=== PATIENT | male | born 1980 | race Caucasian/White ===

== ENCOUNTER 2018-02-10 22:22 | Emergency (ER) | payer BC, OTHER ==
[~2018-02-10] VITALS: Ht 170.2 cm; Wt 74.8 kg
[~2018-02-10 22:22] MED LIST: ALBUTEROL INHAL17 GM IH; AVELOX400 MG PO; BACTRIM DS TAB1 EACH PO; CARISOPRODOL 3350 MG; FLUOCINONI0.05 %/30; IBUPROFEN 600600 M1 PO; NORCO 5-325 TA1 EACH PO; VALIUM2 MG PO
[2018-02-10 22:32] VITALS: BP 164/107
[2018-02-10] MEDS ORDERED: CLEOCIN HCL300 MG PO (22:54)
== END 2018-02-10 23:09 | disposition home or self-care (01) ==
LOC: M.ERS 22:22
DX: L03.211 Cellulitis of face (principal); M54.30 Sciatica, unspecified side; F17.210 Nicotine dependence, cigarettes, uncomplicated

== ENCOUNTER 2020-05-10 13:16 | Emergency (ER) | payer BC ==
[~2020-05-10] VITALS: Ht 170.2 cm; Wt 79.4 kg
[~2020-05-10 13:16] MED LIST changes: +CLEOCIN HCL300 MG PO
[2020-05-10] MEDS ORDERED: HYDROCODON-ACE1 EAC7 PO (14:40)
[2020-05-10] MEDS ORDERED: FLEXERIL PO (14:40)
[2020-05-10 15:00] VITALS: BP 139/78
--- NOTE | 2020-05-10 16:39 | EKG ---
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 : 1980 Requested By: Marin Miramontes Order Number: [id number] MD: Charles Aceves Measurements Intervals [place] Rate: 90 P: 44 DC: 157 QRS: -34 QRSD: 93 T: 25 QT: 378 QTc: 463 Interpretive Statements Sinus rhythm Left axis deviation Baseline wander in lead(s) V2,V3,V5,V6 Compared to ECG 02/24/2010 21:23:44 Left-axis deviation now present Sinus tachycardia no longer present Electronically Signed On 05-10-2020 16:39:44 DRILLING SUPERINTENDENT by Charles Aceves [email or web address] <ELECTRONICALLY SIGNED> By: Charles Aceves MD, FAC 05/10/20 1639 1414 1414 Charles Aceves MD, FAC /EPI
== END 2020-05-10 15:05 | disposition home or self-care (01) ==
LOC: M.ERS 13:16
DX: M25.511 Pain in right shoulder (principal); R20.2 Paresthesia of skin; M54.2 Cervicalgia; R53.1 Weakness; X58.XXXA Exposure to other specified factors, initial encounter; Y93.89 Activity, other specified; Y92.89 Other specified places as the place of occurrence of the external cause; Y99.8 Other external cause status

== ENCOUNTER → 2020-05-30 | Outpatient (CLI) | payer BC ==
[~2020-05-30] MED LIST changes: +FLEXERIL PO; +HYDROCODON-ACE1 EAC7 PO
== END ==
LOC: M.MRI 15:57
PROVIDERS: ATTEND Student in an Organized Health Care Education/Training Program
DX: M50.11 Cervical disc disorder with radiculopathy, high cervical region (principal); M50.01 Cervical disc disorder with myelopathy, high cervical region; M48.02 Spinal stenosis, cervical region; M25.78 Osteophyte, vertebrae; M47.22 Other spondylosis with radiculopathy, cervical region; M75.101 Unspecified rotator cuff tear or rupture of right shoulder, not specified as traumatic

== ENCOUNTER 2020-09-25 20:28 | Inpatient (IN) | payer BC ==
[~2020-09-25] VITALS: Ht 172.7 cm; Wt 78.7 kg
[2020-09-25 20:39] VITALS: BP 128/93
[2020-09-25 20:46] LABS: ABSOLUTE BASOPHILS 0.1 thou/uL (0.0-0.2); ABSOLUTE EOSINOPHILS 0.2 thou/uL (0.0-0.7); ABSOLUTE LYMPHOCYTES 3.6 thou/uL (0.8-5.3); ABSOLUTE MONOCYTES 1.2 thou/uL (0.0-1.2); ABSOLUTE NEUTROPHILS 8.8 thou/uL (1.6-8.1); BASOPHILS 0.6 %; EOSINOPHILS 1.1 %; HEMATOCRIT 45.4 % (42.0-52.0); HEMOGLOBIN 15.7 gm/dL (14.0-18.0); LYMPHOCYTES 25.7 %; MCH 37.6 pg (26.0-34.0); MCHC 34.5 g/dL (28.0-37.0); MCV 108.9 fL (80.0-100.0); MPV 7.6 fl. (7.2-11.1); NUCLEATED RBCS 0 /100WBC; PLATELET COUNT* 336 thou/uL (150-400); POLYS 63.6 %; RBC 4.17 mil/uL (4.50-6.00); RDW-CV 15.1 % (10.5-14.5); WBC 13.8 thou/uL (4.0-11.0)
[2020-09-25 20:57] LABS: INR 1.1; PROTIME 11.2 Seconds (9.20-11.50)
[2020-09-25 21:00] VITALS: BP 139/92
[2020-09-25 21:26] LABS: CALCIUM 8.1 mg/dL (8.5-10.1); CREATININE 1.4 mg/dL (0.6-1.3); POTASSIUM 3.2 mmol/L (3.5-5.1)
[2020-09-25 21:36] LABS: ALBUMIN 3.9 g/dL (3.4-5.0); MAGNESIUM 1.8 mg/dL (1.8-2.4); TOTAL BILIRUBIN 0.6 mg/dL (<0.1-1.0); TOTAL PROTEIN 7.5 g/dL (6.4-8.2)
--- NOTE | 2020-09-25 21:43 | NUR ---
SEE STEMI FLOW SHEET
[2020-09-25 23:31] VITALS: BP 113/71
[2020-09-25 23:45] VITALS: BP 125/91
[2020-09-26] VITALS (34 sets, daily range): BP systolic 111–157; BP diastolic 70–110
--- NOTE | 2020-09-26 01:32 | NUR ---
PT TRANSPORTED ON ICU BED FROM KNIFE SETTER TO ICU ROOM 5 @ 2207 09/25/20. RECIEVED REPORT BEDSIDE BY KNIFE SETTER RN SHMUEL. PT WAS TRANSPORTED WITH ANGIOMAX INFUSING WITH ANOTHER BAG WITH PATIENT AND 1L NORMAL SALINE INFUSING AT 100ML/HR. KNIFE SETTER RN INSTRUCTIONS OF DR. PULIDO'S ORDERS ARE TO CONTINUE INFUSING ANGIOMAX GTTS UNTIL 1230AM AND INFUSE SODIUM CHOLORIDE FOR 8 HOURS. AGNIOMAX STOPPED AT 0030AM. RIGHT GROIN SITE WAS CHECKED WITH KNIFE SETTER RN PRESENT. DRESSING CLEAN/DRY/INTACT WITH SOME DRIED BLOOD. PULESE AND CAP REFILL GOOD WITH ALL EXTREMITY. BEDREST FOR 6 HOURS UNTIL 0345AM. ADMISSION MATERIAL STARTED AND FINISHED. PT SIGNED CONSENTS. GIRLFRIEND AT BEDSIDE TO VISIT PT. PT IS HEMODYNAMICLY STABLE. ORDERS INPUTED IN THE COMPUTER AND PRN MEDICATIONS VERIFIED FOR SYMPTOM RELIEF NEEDED. CONTINUE WITH PLAN OF CARE.
[2020-09-26 03:10] LABS: ABSOLUTE EOSINOPHILS 0.1 thou/uL (0.0-0.7); ABSOLUTE LYMPHOCYTES 1.6 thou/uL (0.8-5.3); ABSOLUTE MONOCYTES 1.2 thou/uL (0.0-1.2); BASOPHILS 0.4 %; EOSINOPHILS 0.6 %; HEMATOCRIT 40.9 % (42.0-52.0); HEMOGLOBIN 14.2 gm/dL (14.0-18.0); LYMPHOCYTES 15.7 %; MCH 37.1 pg (26.0-34.0); MCHC 34.8 g/dL (28.0-37.0); MCV 106.8 fL (80.0-100.0); MPV 7.9 fl. (7.2-11.1); NUCLEATED RBCS 0 /100WBC; PLATELET COUNT* 283 thou/uL (150-400); POLYS 71.3 %; RBC 3.83 mil/uL (4.50-6.00); RDW-CV 14.5 % (10.5-14.5); WBC 9.9 thou/uL (4.0-11.0)
[2020-09-26 03:42] LABS: CALCIUM 8.1 mg/dL (8.5-10.1); CREATININE 1.1 mg/dL (0.6-1.3)
--- NOTE | 2020-09-26 10:06 | CARD ---
[address] [address] CARDIAC CATH REPORT Name: ALY LEUNG Room: [address] ADM IN M.R.#: [id number] Admission: 09/25/20 Attend Phys: Don Keane Discharge: Date of : 78 Report #: [id number] THIS REPORT FOR: cc: Mainor Martínez Gregg R. DO Park, Jin S. MD ~ APPROVED REPORT Study performed: 09/25/2020 20:49:43 Patient Details Patient Status: ED Room #: The patient is a 40 year-old male Event Personnel Tony Bob Document Restorer, Marylou Mustafa RN Ophthalmic Medical Technician, Tonya Daniel RN Monitor, Reji Thompson RTR Scrub Procedures Performed Art Access - R femoral artery* Left Heart Cath w/or w/o Coronaries LHC CLAY Revasc AMI Total/Sub Single RCA Hemostasis w/ Angioseal Throbectomy RCA Indication STEMI (>0 to less than or equal to 6 hours), Dyspnea, Chest pain Risk Factors Hypercholesterolemia, Tobacco History (2ppd) Procedure Narrative The patient was brought electivelyemergently to the Cardiac Catheterization Laboratory and was prepped and draped in a sterile manner. The right femoral was infiltrated with 2% Lidocaine subcutaneous anesthesia. IV conscious sedation was used throughout procedure with appropriate monitoring and was performed in the presence of a registered nurse who was an independent trained observer other than the physician performing the procedure. A [place] 6 FR sheath was inserted into the right femoral artery. Coronary angiography was performed using coronary diagnostic catheters. The right coronary system was accessed and visualized with a 6Fr JR4 Guide Catheter catheter. The left coronary system was accessed and visualized with a 6Fr Diagnostic JL4 catheter. The left ventricle was accessed and visualized with [place] [address] CARDIAC CATH REPORT Name: ALY LEUNG Room: [address] IN ..#: [id number] Admission: 09/25/20 Attend Phys: Don Keane Discharge: Date of : 78 Report #: [id number] ventriculogram was performed in PERUVIAN projection. Closure device was deployed with a 6 Fr Angioseal. The patient tolerated the procedure well and there were no complications associated with the procedure. There was no hematoma. Intraoperative Conscious Sedation Sedation start time: 2111 Case end Time: 2153 Fentanyl 50.0 mcg Versed 1 mg Fluoro Time: 10.7 minutes Dose: DAP 81373 cGycm2 1336 mGy Contrast Type and Amount: Visipaque 180 ml Coronary Angiography The patient's coronary anatomy is right dominant. Diagnostic Cath Left Main The left main artery is a large-caliber vessel, patent with no flow-limiting lesions. LAD The LAD is a moderate-sized caliber vessel, traverses the anterior wall and terminates at the apex. There is mild diffuse plaque in the proximal segment, less than 20%. Diagonal 1 This is a moderate-sized caliber vessel, patent with no flow-limiting lesions. Circumflex Left circumflex artery is patent, with no flow-limiting lesions. OM1 This is a small to moderate-sized caliber vessel, patent with no flow-limiting lesions. OM2 This is a small to moderate-sized caliber vessel, patent with no flow-limiting lesions. Right Coronary The RCA is a dominant vessel with a subtotal occlusion in the mid segment with filling defects. Left Ventriculography The left ventricle is normal in size with Diminished contractility. The left ventricular ejection fraction is estimated to be 40-45%. Left ventricular wall motion abnormalities are present. There is hypokinesis of the inferior wall. Hemodynamics The aortic pressure is 158/67 mmHg with a mean of 107 mmHg. The left ventricular pressure is 123/9 mmHg with a mean of mmHg. The left ventricular end diastolic pressure is 28 mmHg. There was no gradient across the [place] [address] CARDIAC CATH REPORT Name: ALY LEUNG Room: [address] ADM IN M.R.#: [id number] Admission: 09/25/20 Attend Phys: oDn Keane Discharge: Date of : 78 Report #: [id number] PCI Technique Lesion Patient was preloaded with Brillinta. Percutaneous coronary intervention was performed on the mid right coronary artery. The lesion stenosis prior to intervention was 100% with ATIYA 1 flow. A 6F JR 4.0 Guide Catheter was used to engage the ostium. A IG: Luge Wire 180 Interventional Guidewire was used to cross the lesion. BALLOON DILATION A Balloon catheter Trek RX 2.25 X 15 was inserted and inflated up to 8.00atm for 7seconds. Additional Inflation: 8.00atm for 6seconds. The lesion was initially dilated with a 2.25 mm semicompliant balloon. There was still a significant residual stenosis with filling defect consistent with thrombus. A Pronto Extraction catheter was inserted and throbectomy performed x 2 passes. After the Pronto extraction catheter was used, there was filling of the distal vessels but still significant residual stenosis at the lesion site. During the procedure, the patient developed bradycardia, requiring treatment with atropine. The next step was placement of a drug-eluting stent at the lesion site. STENT DEPLOYMENT A drug-eluting stent [place] RX Stent [id number] was inserted and inflated up to 20.00atm for 16seconds. Additional Inflation: 18.00atm for 13seconds. POST STENT DEPLOYMENT BALLOON DILATION A Balloon catheter NC Trek RX 3.25 X 12 was inserted and inflated up to 18.00atm for 9seconds. Final angiography reveals 5 % stenosis with ATIYA 3 flow. Conclusion 1. Successful PCI involving Pronto extraction thrombectomy catheter and placement of a drug-eluting stent into the subtotal occlusion in the mid RCA with mu-ism of ATIYA-3 blood flow. 2. There is mild disease in the proximal AD. 3. There is mild to moderate segmental LV dysfunction. 4. Recommend dual antiplatelet therapy and aggressive risk factor management. <ELECTRONICALLY SIGNED> By: Tony Bob MD 09/26/20 1006 1006Tony Bob MD /INF
--- NOTE | 2020-09-26 10:33 | H ---
[place] [address] HISTORY AND PHYSICAL Name: ALY LEUNG Room: [address] ADM IN M.R.#: [id number] Admission: 09/25/20 Attend Phys: Don Keane Discharge: Date of : 78 Report #: [id number] THIS REPORT FOR: cc: Mainor Martínez Gregg R. DO Park, Jin S. MD ~ ADMIT DATE: 09/25/2020 CHIEF COMPLAINT: Chest pain. HISTORY OF PRESENT ILLNESS: This is a 40-year-old with a past medical history of tobacco use, presenting with acute onset of substernal chest pain. He was trying to sleep, when he woke up with substernal chest pain, with numbness down both arms. He developed diaphoresis and mild dyspnea. There is no history of fever, nausea or diarrhea. 911 was called. EKG from the EMS reveals sinus rhythm with ST elevation in inferolateral leads. PAST MEDICAL HISTORY: Denies diabetes, denies hypertension. ALLERGIES: None. MEDICATIONS: None. SOCIAL HISTORY: Two pack per day tobacco use, smoker. FAMILY HISTORY: Negative for premature CAD. REVIEW OF SYSTEMS: See HPI. PHYSICAL EXAMINATION: VITAL SIGNS: Blood pressure is 140/70, heart rate is 60 beats per minute. GENERAL APPEARANCE: He is a well-developed, well-nourished male in mild distress. HEENT: Normocephalic, atraumatic. Oral mucosa moist. NECK: Supple. LUNGS: Clear to auscultation. CARDIAC: Regular rate and rhythm, S1, S2 positive. ABDOMEN: Soft, nontender. EXTREMITIES: No cyanosis, no edema. LABORATORY DATA: EKG reveals sinus rhythm with ST elevation of 2-3 mm in leads II, III, aVF, V5, V6 with ST depression in V2. ASSESSMENT AND PLAN: 1. Acute inferolateral myocardial infarction. He was treated with aspirin, Brilinta, and heparin. He will be taken emergently to the [place] [address] HISTORY AND PHYSICAL Name: ALY LEUNG Room: [address] IN [facility]#: [id number] Admission: 09/25/20 Attend Phys: Don Keane Discharge: Date of : 78 Report #: [id number] 2. Tobacco use, complete smoking cessation is advised. 3. Hypercholesterolemia, will initiate statin therapy. <ELECTRONICALLY SIGNED> By: Tony Bob MD 09/26/20 1033 06 Gato Bob MD /nt
[2020-09-26 12:38] LABS: CHOLESTEROL 192 mg/dL (<200); HDL CHOLESTEROL 25 mg/dL (>40); LDL CHOLESTEROL > 400 mg/dL (<100); SERUM ASSESSMENT Clear; TC:HDL 7.7 Ratio (Not establshd); TRIGLYCERIDE 688 mg/dL (<150); VLDL 138 mg/dL (<40)
--- NOTE | 2020-09-26 14:17 | NUR ---
Met with patient and SO (Kaylie/[phone]) at bedside. Introduced role of CM. Patient admitted for Stemi. Patient currently lives in a wheelchair accessible house although he does not need assistance. Patient lives with SO and dtr. Patient was independent with ADLs and was working and driving prior to admission. No hx of DME, O2, dialysis, infusion therapy, BHS, rehab/SNF or HH. Patient was seeing Dr. Mainor Martínez for primary care needs but has not seen this doctor in over 10 years. CM to provide PCP resource list. Goal is for patient to return home at discharge. No anticipated needs noted at this time. Patient could downgrade to tele today of hospitalist agrees. CM to continue to follow
--- NOTE | 2020-09-26 16:26 | EKG ---
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 [employer]: : 1980 Requested By: Rose Woods Order Number: [id number] MD: Miguel Valentin Measurements Intervals [place] Rate: 58 P: 64 [place]: 156 QRS: 73 QRSD: 108 T: 93 QT: 458 QTc: 450 Interpretive Statements Sinus rhythm Inferoposterior infarct, acute (RCA) Lateral infarct, acute Probable RV involvement, suggest recording right precordial leads Compared to ECG 05/10/2020 14:14:15 Myocardial infarct finding now present Left-axis deviation no longer present Electronically Signed On 09-26-2020 16:26:26 CDT by Miguel Valentin [email or web address] <ELECTRONICALLY SIGNED> By: Miguel Valentin MD, [facility] 09/26/20 1626 31 31 Miguel Valentin MD, [facility] /EPI
--- NOTE | 2020-09-26 16:40 | EKG ---
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: : 1980 Requested By: Emilia Cho Order Number: [id number] Reading MD: Miguel Valentin Measurements Intervals [place] Rate: 70 P: 60 GA: 134 QRS: -26 QRSD: 99 T: 41 QT: 412 QTc: 445 Interpretive Statements Sinus rhythm Inferior infarct, recent Lateral leads are also involved Compared to ECG 09/25/2020 20:32:13 There has been evolution of the inferior posterior wall myocardial infarction Electronically Signed On 09-26-2020 16:39:50 CDT by Miguel Valentin [email or web address] <ELECTRONICALLY SIGNED> By: Miguel Valentin MD, [facility] 09/26/20 1639 1328 1328 Miguel Valentin MD, [facility] /EPI
--- NOTE | 2020-09-26 18:18 | NUR ---
181 - PT RECIEVED BED ASSIGNMENT ON TELEMETRY UNIT, ATTEMPTED TO CALL REPORT AND RN STATING UNABLE TO RECIEVE REPORT AT THIS TIME AND WILL CALL BACK.
--- NOTE | 2020-09-26 19:05 | NUR ---
1904 - REPORT CALLED TO ALANA COLVIN, TELEMETRY UNIT TO COME GET PT. UPON TRANSFER OF CARE PT AOx4, GCS15, VSS, NSR ON MONITOR, AND NAD NOTED. TRANSFER OF CARE AT THIS TIME
[2020-09-27 04:00] VITALS: BP 132/97
--- NOTE | 2020-09-27 07:27 | NUR ---
PT IS ABLE TO COMMUNICATE HIS NEEDS TO STAFF EFFECTIVELY. CURRENT PAIN MEDICATION REGIMEN HAS BEEN ADEQUATE FOR CONTROLLING HIS PAIN UP TO THIS TIME. POSSIBLE DISCHARGE TODAY.
[2020-09-27 08:30] VITALS: BP 108/77
[2020-09-27] MEDS ORDERED: Nicoderm 21MG/24HR P TRANSDERM (09:48)
[2020-09-27] MEDS ORDERED: BRILINTA90 MG PO (09:48)
[2020-09-27] MEDS ORDERED: LIPITOR40 MG PO (09:48)
[2020-09-27] MEDS ORDERED: COZAAR 50 MG TA50 M1 PO (09:49)
[2020-09-27] MEDS ORDERED: SPIRONOLACTONE25 MG PO (09:49)
[2020-09-27] MEDS ORDERED: BAYER CHEWABLE81 MG PO (09:49)
[2020-09-27 11:12] VITALS: BP 108/77
[2020-09-27 11:15] VITALS: BP 108/77
[2020-09-27] MEDS ORDERED: TOPROL XL25 MG PO (11:28)
[2020-09-27 12:00] VITALS: BP 105/73
--- NOTE | 2020-09-27 13:58 | NUR ---
PHYSICIAN INFORMS OF PLAN FOR THE PT TO D/C HOME TODAY WITH SELF-CARE. NO CM D/C PLANNING NEEDS ANTICIPATED. CM WILL REMAIN AVAILABLE TO ASSIST AND FOLLOW NEEDED.
[2020-09-27 13:59] VITALS: BP 108/77
--- NOTE | 2020-09-27 14:16 | NUR ---
PT VERBALIZED UNDERSTANDING OF DISCHARGE INSTRUCTIONS. ALL BELONGINGS PACKED AND SENT WITH PATIENT. COPY OF DISCHARGE INSTRUCTIONS GIVEN TO PATIENT WELL APPT REMINDERS AND NEW MEDICATION INFORMATION. PT DISCHARGE TO HOME WITH SIGNIFICANT OTHER VIA PRIVATE VEHICLE.
== END 2020-09-27 14:15 | disposition home or self-care (01) | DRG 246 ==
LOC: M.ERS 20:28 → M.CL 20:28 → M.TBA-ER 22:49 → M.ICU 22:49 → M.2W 09-26 19:13
PROVIDERS: Emergency Medicine; Registered Nurse; ADMIT Internal Medicine; ATTEND Internal Medicine
PROC: 02C03ZZ Extirpation of Matter from Coronary Artery, One Artery, Percutaneous Approach (ICD-10-PCS; principal; 2020-09-25)
PROC: B215YZZ Fluoroscopy of Left Heart using Other Contrast (ICD-10-PCS; principal; 2020-09-25)
PROC: B211YZZ Fluoroscopy of Multiple Coronary Arteries using Other Contrast (ICD-10-PCS; principal; 2020-09-25)
PROC: 4A023N7 Measurement of Cardiac Sampling and Pressure, Left Heart, Percutaneous Approach (ICD-10-PCS; principal; 2020-09-25)
PROC: 027034Z Dilation of Coronary Artery, One Artery with Drug-eluting Intraluminal Device, Percutaneous Approach (ICD-10-PCS; principal; 2020-09-25)
DX: I21.19 ST elevation (STEMI) myocardial infarction involving other coronary artery of inferior wall (principal); I50.31 Acute diastolic (congestive) heart failure; I25.5 Ischemic cardiomyopathy; E78.5 Hyperlipidemia, unspecified; E78.00 Pure hypercholesterolemia, unspecified; F41.9 Anxiety disorder, unspecified; I11.0 Hypertensive heart disease with heart failure; Z72.0 Tobacco use

== ENCOUNTER → 2020-10-15 | Outpatient (CLI) | payer BC ==
[~2020-10-15] MED LIST changes: +BAYER CHEWABLE81 MG PO; +BRILINTA90 MG PO; +COZAAR 50 MG TA50 M1 PO; +LIPITOR40 MG PO; +Nicoderm 21MG/24HR P TRANSDERM; +SPIRONOLACTONE25 MG PO; +TOPROL XL25 MG PO
[2020-10-15 14:30] LABS: CALCIUM 8.8 mg/dL (8.5-10.1); CREATININE 1.1 mg/dL (0.6-1.3); POTASSIUM 4.6 mmol/L (3.5-5.1); TOTAL BILIRUBIN 0.3 mg/dL (<0.1-1.0); TOTAL PROTEIN 7.7 g/dL (6.4-8.2)
== END ==
LOC: M.LAB 14:05
PROVIDERS: ATTEND Registered Nurse
DX: I25.5 Ischemic cardiomyopathy (principal)

== ENCOUNTER → 2021-04-11 | Outpatient (CLI) | payer BC ==
[2021-04-11 14:24] LABS: ABSOLUTE BASOPHILS 0.1 thou/uL (0.0-0.2); ABSOLUTE EOSINOPHILS 0.1 thou/uL (0.0-0.7); ABSOLUTE LYMPHOCYTES 0.8 thou/uL (0.8-5.3); ABSOLUTE MONOCYTES 0.6 thou/uL (0.0-1.2); ABSOLUTE NEUTROPHILS 3.3 thou/uL (1.6-8.1); BASOPHILS 1.1 %; EOSINOPHILS 2.5 %; HEMATOCRIT 43.3 % (42.0-52.0); HEMOGLOBIN 14.8 gm/dL (14.0-18.0); LYMPHOCYTES 16.3 %; MCH 36.8 pg (26.0-34.0); MCHC 34.1 g/dL (28.0-37.0); MONOCYTES 12.5 %; MPV 7.3 fl. (7.2-11.1); NUCLEATED RBCS 0 /100WBC; PLATELET COUNT* 254 thou/uL (150-400); POLYS 67.6 %; RBC 4.01 mil/uL (4.50-6.00); RDW-CV 13.2 % (10.5-14.5); WBC 4.9 thou/uL (4.0-11.0)
[2021-04-11 14:44] LABS: ALBUMIN 4.1 g/dL (3.4-5.0); ALKALINE PHOSPHATASE 114 U/L (46-116); ANION GAP 10 mmol/L (7-16); BUN 12 mg/dL (7-18); CALCIUM 8.5 mg/dL (8.5-10.1); CHLORIDE 102 mmol/L (98-107); CHOLESTEROL 229 mg/dL (<200); CO2 25 mmol/L (21-32); CREATININE 1.2 mg/dL (0.6-1.3); GLUCOSE 104 mg/dL (70-99); HDL CHOLESTEROL 48 mg/dL (>40); LDL CHOLESTEROL 115 mg/dL (<100); POTASSIUM 4.3 mmol/L (3.5-5.1); SGOT 93 U/L (15-37); SGPT 118 U/L (30-65); SODIUM 137 mmol/L (136-145); TC:HDL 4.8 Ratio (Not establshd); TOTAL BILIRUBIN 0.5 mg/dL (<0.1-1.0); TOTAL PROTEIN 7.6 g/dL (6.4-8.2); TRIGLYCERIDE 333 mg/dL (<150); VLDL 67 mg/dL (<40)
[2021-04-11 14:46] LABS: SERUM ASSESSMENT Clear
== END ==
LOC: M.LAB 13:36
PROVIDERS: ATTEND Registered Nurse
DX: E78.01 Familial hypercholesterolemia (principal); I25.5 Ischemic cardiomyopathy